=== PATIENT | male | born 1990 | race American Indian/Alaskan Native ===

== ENCOUNTER 2023-03-30 13:29 | Emergency (ER) | payer MEDICAID ==
[2023-03-30] MEDS ORDERED: Diphtheria,Pertussis(Acell),Tetanus Vaccine 0.5 ML Syringe IM ONE (14:18)
[2023-03-30] MEDS ORDERED: Acetaminophen/oxyCODONE 325-5 MG Tab PO ONE (14:24)
== END 2023-03-30 15:23 | disposition home or self-care (01) ==
LOC: MW.ED 13:29
DX: S61.203A Unspecified open wound of left middle finger without damage to nail, initial encounter (principal); Z23 Encounter for immunization; W26.0XXA Contact with knife, initial encounter
CPT/HCPCS: 90471; 90715; 99283; A9270

== ENCOUNTER 2023-04-01 17:10 | Emergency (ER) | payer MEDICAID ==
[2023-04-01] MEDS ORDERED: Bacitracin Oint 1 GM U/D Packet TOP STA (18:24)
[2023-04-01] MEDS ORDERED: Acetaminophen 500 MG Tab PO STA (18:30)
[2023-04-01] MEDS ORDERED: Ibuprofen 800 MG Tab PO STA (18:30)
== END 2023-04-01 18:49 | disposition home or self-care (01) ==
LOC: MW.ED 17:10
DX: S61.203A Unspecified open wound of left middle finger without damage to nail, initial encounter (principal); Z79.899 Other long term (current) drug therapy; W22.8XXA Striking against or struck by other objects, initial encounter
CPT/HCPCS: 99283; A9270

== ENCOUNTER 2023-09-16 16:44 | Emergency (ER) | payer MEDICAID | END 2023-09-16 17:27 | disposition home or self-care (01) | LOC: MW.ED 16:44 | DX: K04.7 Periapical abscess without sinus (principal); Z86.19 Personal history of other infectious and parasitic diseases; Z75.8 Other problems related to medical facilities and other health care | CPT/HCPCS: 99282 ==

== ENCOUNTER 2024-03-10 11:16 | Emergency (ER) | payer MEDICAID ==
[2024-03-10] MEDS: Sodium Chloride 0.9% 1,000 ML IV ONE (11:34)
[2024-03-10] MEDS: Sodium Chloride 0.9% 2.5 ML Syringe FLUSH PRN (11:34)
[2024-03-10] MEDS: Sodium Chloride 0.9% 10 ML Syringe FLUSH PRN (11:34)
[2024-03-10 11:57] LABS: BASOPHILS ABSOLUTE AUTO 0.04 K/uL (0.00-0.20); BASOPHILS PERCENT AUTO 0.4 % (0.0-1.0); EOSINOPHILS ABSOLUTE AUTO 0.04 K/uL (0.00-0.45); EOSINOPHILS PERCENT AUTO 0.4 % (0.0-6.0); HEMOGLOBIN 12.8 g/dL (14.0-18.0); IMMATURE GRAN ABSOLUTE AUTO 0.02 K/uL (0.00-0.05); IMMATURE GRAN PERCENT AUTO 0.2 % (0.0-0.4); LYMPHOCYTES ABSOLUTE AUTO 1.35 K/uL (1.00-4.80); LYMPHOCYTES PERCENT AUTO 13.6 % (24.0-44.0); MEAN CORPUSCULAR HEMOGLOBIN 29.4 pg (28.0-32.0); MEAN CORPUSCULAR HGB CONC 33.7 g/dL (32.0-36.0); MEAN CORPUSCULAR VOLUME 87.4 fL (83.0-99.0); MEAN PLATELET VOLUME 10.2 fL (9.4-12.4); MONOCYTES ABSOLUTE AUTO 0.37 K/uL (0.00-0.80); MONOCYTES PERCENT AUTO 3.7 % (0.0-8.0); NEUTROPHILS ABSOLUTE AUTO 8.14 K/uL (1.80-7.70); NEUTROPHILS PERCENT AUTO 81.7 % (41.0-71.0); PLATELET COUNT,PLT 307 K/uL (150-400); RED BLOOD CELL COUNT 4.35 M/uL (4.52-5.90); WHITE BLOOD CELL COUNT,WBC 9.96 K/uL (3.9-11.3)
[2024-03-10 12:12] LABS: INR 1.06 (0.86-1.11)
[2024-03-10 12:23] LABS: ALANINE AMINOTRANSFERASE,ALT 16 IU/L (14-63); ALBUMIN 3.6 g/dL (3.4-5.0); ALKALINE PHOSPHATASE 83 U/L (46-116); ASPARTATE AMNIOTRANSFERASE,AST 13 IU/L (15-37); BILIRUBIN TOTAL 0.7 mg/dL (0.2-1.0); BLOOD UREA NITROGEN,BUN 9 mg/dL (7.0-18.0); CALCIUM 8.7 mg/dL (8.5-10.1); CARBON DIOXIDE,CO2 25.8 mmol/L (21.0-32.0); CHLORIDE,CL 105 mmol/L (98-107); CREATININE 0.9 mg/dL (0.8-1.3); ETHANOL BLOOD MEDICAL <3 mg/dL; GLUCOSE RANDOM 109 mg/dL (74-106); LIPASE 26 U/L (16-77); POTASSIUM,K 3.5 mmol/L (3.5-5.1); PROTEIN TOTAL,TP 7.2 g/dL (6.4-8.2); SODIUM,NA 141 mmol/L (136-148)
[2024-03-10 12:24] LABS: ESTIMATED GFR 117 mL/min (>60)
[2024-03-10 12:48] LABS: APPEARANCE,URINE CLEAR; BILIRUBIN,URINE NEGATIVE (NEGATIVE); COLOR,URINE YELLOW; GLUCOSE,URINE NEGATIVE (NEGATIVE); KETONES,URINE NEGATIVE (NEGATIVE); LEUKOCYTE ESTERASE,URINE NEGATIVE (NEGATIVE); NITRITE,URINE NEGATIVE (NEGATIVE); OCCULT BLOOD,URINE NEGATIVE (NEGATIVE); PH,URINE 6.5 (5.0-8.0); PROTEIN,URINE NEGATIVE (NEGATIVE); UROBILINOGEN,URINE 0.2 EU/dL (<2.0)
[2024-03-10 12:56] LABS: AMPHETAMINES SCREEN, URINE NEGATIVE (CUTOFF=500); BARBITURATE SCREEN,URINE NEGATIVE (CUTOFF=200); BENZODIAZEPINES SCREEN,URINE NEGATIVE (CUTOFF=150); BUPRENORPHINE SCREEN,URINE NEGATIVE (CUTOFF=10); METHADONE SCREEN, URINE NEGATIVE (CUTOFF=200); METHAMPHETAMINES SCREEN, URINE NEGATIVE (CUTOFF=500); OXYCODONE SCREEN,URINE NEGATIVE (CUT0FF=100); PCP SCREEN,URINE NEGATIVE (CUTOFF=25); THC SCREEN,URINE 20 NG/ML PRESUMPTIVE POSITIVE (CUTOFF=50)
[2024-03-10] MEDS: Iopamidol 755 MG/ML 500 ML Multipack Bottle IVPUSH STA (13:42)
[2024-03-10] MEDS: Acetaminophen 500 MG Tab PO ONE (14:54)
== END 2024-03-10 14:58 ==
LOC: MERGE 11:16 → MW.ED 11:16
DX: R10.84 Generalized abdominal pain (principal)
CPT/HCPCS: 36415; 70450; 74177; 80053; 80305; 80307; 81003; 83690; 85025; 85610; 96360; 99285; A9270; J3490; J7030; Q9967